=== PATIENT | female | born 1960 | race Caucasian/White ===

== ENCOUNTER → 2017-05-22 | Outpatient (CLI) | payer OTHER ==
--- NOTE | 2017-05-22 12:58 | RAD ---
Single contrast barium enema History: Incomplete colonoscopy. Comparison: None. Technique: 2 cook seafood overhead radiographs were obtained. 7 postcontrast radiographs were obtained. 54 spot fluoroscopic images were obtained. Total fluoroscopic time was 9.1 minutes. Findings: Nitric Acid Concentrator Operator film demonstrates nonobstructed bowel gas pattern. Bowel preparation is thought adequate. Secondary to history of incomplete colonoscopy as well as concerns of patient mobility, single contrast barium enema was performed. Rectal catheter was inserted and the balloon was inflated. Consequently, there is limited evaluation of the rectum. The sigmoid colon demonstrates numerous diverticula. There is also irregular, somewhat serrated appearance of the sigmoid colon, although the sigmoid colon appears partially compressible. This is thought to represent chronic changes and muscular hypertrophy secondary to the extensive colonic diverticulosis. Lesser degree of colonic diverticulosis is seen in other portions of the colon. On several images, there is evidence of muscular contraction near the splenic flexure as the location of apparent focal narrowing appears distensible and changes appearance over time. The descending colon and transverse colon appear distensible and are without evidence of focal abnormality. Within the cecum, at the expected location of the ileocecal valve, there is apparent conical shaped filling defect of the contrast which could measure up to 3 cm in maximum dimension. This is favored to represent lipomatous hypertrophy of the ileocecal valve. Impression: 1. 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 No other filling defect is identified. 2. The sigmoid colon demonstrates fairly extensive diverticulosis and evidence of muscular hypertrophy. 3. Lesser degree of colonic diverticulosis is seen in other portions of the colon.
== END | disposition home or self-care (01) ==
LOC: RAD 07:01 → EDSEX 08:30
PROVIDERS: ATTEND Internal Medicine Gastroenterology
DX: K56.600 Partial intestinal obstruction, unspecified as to cause (principal); K57.30 Diverticulosis of large intestine without perforation or abscess without bleeding
CPT/HCPCS: 74270

== ENCOUNTER → 2018-06-24 | Outpatient (CLI) | payer OTHER ==
[~2018-06-24] MED LIST: BUPIVACAINE MPF 0.25% 10 ML VIAL. ONE; DEXAMETHASONE SOD PHOS 10 MG/ML VIAL ONE
== END | disposition home or self-care (01) ==
LOC: SURG 13:49
PROVIDERS: ATTEND Anesthesiology
DX: M79.18 Myalgia, other site (principal); J44.9 Chronic obstructive pulmonary disease, unspecified; G47.30 Sleep apnea, unspecified; I10 Essential (primary) hypertension; F31.9 Bipolar disorder, unspecified; M19.90 Unspecified osteoarthritis, unspecified site; Z90.49 Acquired absence of other specified parts of digestive tract; Z90.710 Acquired absence of both cervix and uterus; Z79.899 Other long term (current) drug therapy; F17.210 Nicotine dependence, cigarettes, uncomplicated
CPT/HCPCS: 20552; J1100; J3490; 20553

== ENCOUNTER 2019-11-25 21:04 | Emergency (ER) | payer OTHER, MEDICAID ==
[~2019-11-25] VITALS: Ht 170.2 cm; Wt 90.9 kg
--- NOTE | 2019-11-25 21:09 | PHYS DOC ---
Past History Past Medical History: Constipation, Diverticulitis, Pneumonia, UTI General Adult EDM: Chief Complaint: ABDOMINAL PAIN HPI: HPI: ".. I ve been hurting tonight..." "..It really been bad since about 6.. I know I got some past hx of colon problems.. and had some urinary tract infections..but this is really hurting me on this Lt. flank, and into..my lower abdomen..." Patient is a 59 year old female who presents with above hx and complaints of abdomen pain. Acute onset of pain approximately 1800 hrs. tonight. Patient did states she did not feel quite warm right today. At noon she had a salad. But no history of bad food intake. No recent travel outside [facility]. No specific ill contacts. No history of trauma. Has had previous abdomen surgeries of hysterectomy and has had a history of previous kidney stones. . Pt.follow s with . Patient also follows with Dr. Laureano. Last colonoscopy was 1 year ago. Patient recently had a outpatient diagnosis. pneumonia. Patient's COVID test was negative on . Review of Systems: Review of Systems: Constitutional: Denies fever or chills Eyes: Denies change in visual acuity HENT: Denies nasal congestion or sore throat Respiratory: Denies cough or shortness of breath Cardiovascular: Denies chest pain or edema GI: Complains of left mid and flank abdominal pain, nausea,. Denies vomiting, bloody stools or diarrhea : Denies dysuria Musculoskeletal: Denies back pain or joint pain Integument: Denies rash Neurologic: Denies headache, focal weakness or sensory changes Endocrine: Denies polyuria or polydipsia Lymphatic: Denies swollen glands Psychiatric: Denies depression or anxiety Heart Score: HEART Score for Chest Pain: HEART Score for Chest Pain Response (Comments) Value History Slighlty/Non-Suspicious 0 ECG Normal 0 Age >45 - < 65 1 Risk Factors 1 or 2 Risk Factors 1 Troponin < Normal Limit 0 Total 2 Risk Factors: Risk Factors: DM, Current or recent (<one month) smoker, HTN, HLP, family history of CAD, obesity. Risk Scores: Score 0 - 3: 2.5% MACE over next 6 weeks - Discharge Home Score 4 - 6: 20.3% MACE over next 6 weeks - Admit for Clinical Observation Score 7 - 10: 72.7% MACE over next 6 weeks - Early Invasive Strategies Family History: Family History: Noncontributory to presentation Current Medications: Current Meds: See nursing for home medications Allergies: Allergies: No known drug allergies Physical Exam: PE: Constitutional: Moderate acute distress, non-toxic appearance. [] HENT: Normocephalic, atraumatic, bilateral external ears normal, oropharynx moist, no oral exudates, nose normal. [] Eyes: PERRLA, EOMI, conjunctiva normal, no discharge. [] Neck: Normal range of motion, no tenderness, supple, no stridor. [] Cardiovascular:Heart rate regular rhythm, no murmur [] Lungs & Thorax: Bilateral breath sounds equal apex with scattered wheezes on auscultation [crackles right base. Abdomen: Bowel sounds decreased, soft, left mid and lower abdomen tenderness, distended, no masses, no pulsatile masses. [Rebound to mid abdomen left. Skin: Warm, dry, no erythema, no rash. [] Back: No tenderness, mild left CVA tenderness on percussion] Extremities: No tenderness, no cyanosis, no clubbing, ROM intact, no edema. [] No psoas sign. Neurologic: Alert and oriented X 3, normal motor function, normal sensory function, no focal deficits noted. [] Psychologic: Affect anxious, judgement normal, mood normal. [] EKG: EKG: My interpretation EKG shows a sinus rhythm at approximately 75 bpm. No findings acute STEMI or pathology. There are some bimodal P waves in V1 [] Radiology/Procedures: Radiology/Procedures: [address] [address] IMAGING REPORT Signed PATIENT: MARSHA CALVILLO MACCOUNT: [id number] : 1960 LOCATION: ER AGE: 59 SEX: F EXAM STATUS: REG ER ORD. PHYSICIAN: FELIZ CHOUDHURY MD REASON: Severe lower abdomen pain PROCEDURE: ACUTE ABDOMEN SERIES Exam: Acute abdominal series INDICATION: Severe lower abdominal pain TECHNIQUE: Frontal view of the chest with upright and supine views of the abdomen Comparisons: None FINDINGS: The cardiomediastinal silhouette and pulmonary vessels are within normal limits. The lung and pleural spaces are clear. Air and stool noted throughout the colon to level the rectum in a nonobstructive bowel gas pattern. Surgical suture material is at the rectum. No suspicious masses or calcifications. Visualized osseous structures are unremarkable. IMPRESSION: 1. No acute cardiopulmonary process. 2. Nonobstructive bowel gas pattern. Electronically signed by: Viridiana Plaza MD (11/25/2019 10:20 PM) [id number] DICTATED AND SIGNED BY: VIRIDIANA PLAZA MD DATE: 11/25/192219 CC: FELIZ CHOUDHURY MD; BALDEMAR ORTIZ ~ [address] [place] [address] IMAGING REPORT Signed PATIENT: MARSHA CALVILLO MACCOUNT: [id number] : 1960 LOCATION: ER AGE: 59 SEX: F EXAM STATUS: REG ER ORD. PHYSICIAN: FELIZ CHOUDHURY MD REASON: Severe lower abdomen pain PROCEDURE: ACUTE ABDOMEN SERIES Exam: Acute abdominal series INDICATION: Severe lower abdominal pain TECHNIQUE: Frontal view of the chest with upright and supine views of the abdomen Comparisons: None FINDINGS: The cardiomediastinal silhouette and pulmonary vessels are within normal limits. The lung and pleural spaces are clear. Air and stool noted throughout the colon to level the rectum in a nonobstructive bowel gas pattern. Surgical suture material is at the rectum. No suspicious masses or calcifications. Visualized osseous structures are unremarkable. IMPRESSION: 1. No acute cardiopulmonary process. 2. Nonobstructive bowel gas pattern. Electronically signed by: Viridiana Plaza MD (11/25/2019 10:20 PM) [id number] DICTATED AND SIGNED BY: VIRIDIANA PLAZA MD DATE: 11/25/192219 CC: FELIZ CHOUDHURY MD; BALDEMAR ORTIZ ~ [][address] [address] IMAGING REPORT Signed PATIENT: MARSHA CALVILLO MACCOUNT: [id number] : 1960 LOCATION: ER AGE: 59 SEX: F EXAM STATUS: REG ER ORD. PHYSICIAN: FELIZ CHOUDHURY MD REASON: Lower abdomen pain PROCEDURE: CT ABDOMEN PELVIS WO CONTRAST INDICATION: Reason: Lower abdomen pain / Spl. Instructions: / History: COMPARISON: None. TECHNIQUE: Axial CT images obtained through the abdomen and pelvis without contrast. One or more of the following individualized dose reduction techniques were utilized for this examination: 1. Automated exposure control; 2. Adjustment of the mA and/or kV according to patient size; 3. Use of iterative reconstruction technique. FINDINGS: Mild interstitial thickening right lung base. Moderate calcific atherosclerosis. No intrahepatic bile duct dilation. No peripancreatic fluid collection. suspected duodenal diverticulum. Spleen unremarkable. No hydronephrosis. Urinary bladder is decompressed. Wall thickening of the sigmoid colon with adjacent edema in the fat no periappendiceal inflammatory changes. No dilated loops of bowel to suggest obstruction. Small fat-containing umbilical hernia. IMPRESSION: * thickening of the sigmoid colon with adjacent edema in the fat. Most likely cause is diverticulitis. Would correlate whether the patient has had a recent colonoscopy as well since a colonic mass could have a similar appearance but would be less common. Follow-up could be obtained to ensure that this appropriately resolves if a recent colonoscopy has not been obtained.. * Calcific atherosclerosis. * There is a mild interstitial thickening at the right lung base. Electronically signed by: Jimmy Munson MD (11/26/2019 12:12 AM) [id number] DICTATED AND SIGNED BY: JIMMY MUNSON MD DATE: 11/26/19 0012 CC: FELIZ CHOUDHURY MD; BALDEMAR ORTIZ Course & Med Decision Making: Course & Med Decision Making Pertinent Labs and Imaging studies reviewed. (See chart for details) Patient stay on a clear fluid diet only for the next 2 days. No solids or milk products. Push clear fluids. Must allow bowel rest. Patient take Tylenol and ibuprofen for pain. Follow-up primary care. Marked pain may take Vicoprofen. Patient to take Cipro 500 mg twice a day. Patient take Flagyl 500 mg 3 times a day. Patient may take Zofran 8 mg up to 4 times a day for nausea and vomiting. Impression: 1. Abdomen pain 2. Constipation 3. Diverticulitis 4. Right basilar pulmonary atelectasis/scarring/infiltrate 5. Urinary tract infection 6. Mild elevation in creatinine 1.1 7. Viral syndrome-elevated monocyte 10 [] Dragon Disclaimer: Dragon Disclaimer: This electronic medical record was generated, in whole or in part, using a voice recognition dictation system. Departure Departure: Disposition: HOME/RESIDENCE PRIOR TO ADM Condition: STABLE Referrals: BALDEMAR ORTIZ (PCP) Scripts Hydrocodone/Ibuprofen (HYDROCODONE-IBUPROFEN 7.5-200 ) 1 Each Tablet 1 TAB PO PRN Q6HRS PRN for PAIN, #30 TAB 0 Refills Prov: FELIZ CHOUDHURY MD 11/26/19 Ondansetron Hcl (ZOFRAN) 8 Mg Tablet 8 MG PO qidp for active vomiting, #30 BOTTLE Prov: FELIZ CHOUDHURY MD 11/26/19 Fluconazole (DIFLUCAN) 100 Mg Tablet 100 MG PO DAILY for post antibiotics for 3 Days, #3 TAB Prov: FELIZ CHOUDHURY MD 11/26/19 Metronidazole (FLAGYL) 500 Mg Tablet 500 MG PO TID for diverticulitis for 10 Days, #30 TAB Prov: FELIZ CHOUDHURY MD 11/26/19 Ciprofloxacin (CIPRO) 500 Mg/5 Ml Janee.mc.rec 500 MG PO BID for diverticuiitis for 5 Days, MISC Prov: FELIZ CHOUDHURY MD 11/26/19 Justification of Admission: Justification of Admission: Justification of Admission Dx: N/A Dragon Disclaimer This chart was dictated in whole or in part using Voice Recognition software in a busy, high-work load, and often noisy Emergency Department environment. It may contain unintended and wholly unrecognized errors or omissions. Dragon Disclaimer This chart was dictated in whole or in part using Voice Recognition software in a busy, high-work load, and often noisy Emergency Department environment. It may contain unintended and wholly unrecognized errors or omissions. FELIZ CHOUDHURY MD Nov 25, 2019 21:09
[2019-11-25] MEDS ORDERED: IV RINGERS SOLUTION,LACTATED 1,000 ML IV SCH (22:03)
[2019-11-25] MEDS ORDERED: MAGNESIUM HYDROXIDE 2,400 MG/30 ML ORAL.SUSP. PO ONE (22:15)
[2019-11-25] MEDS ORDERED: FAMOTIDINE 20 MG/2 ML VIAL IVP ONE (22:15)
[2019-11-25] MEDS ORDERED: ONDANSETRON PF 4 MG/2 ML VIAL. IVP ONE (22:15)
[2019-11-25] MEDS ORDERED: KETOROLAC 30 MG/ML VIAL. IVP ONE (22:15)
--- NOTE | 2019-11-25 22:23 | RAD ---
Exam: Acute abdominal series INDICATION: Severe lower abdominal pain TECHNIQUE: Frontal view of the chest with upright and supine views of the abdomen Comparisons: None FINDINGS: The cardiomediastinal silhouette and pulmonary vessels are within normal limits. The lung and pleural spaces are clear. Air and stool noted throughout the colon to level the rectum in a nonobstructive bowel gas pattern. Surgical suture material is at the rectum. No suspicious masses or calcifications. Visualized osseous structures are unremarkable. IMPRESSION: 1. No acute cardiopulmonary process. 2. Nonobstructive bowel gas pattern. Electronically signed by: Viridiana Mcgraw MD (11/25/2019 10:20 PM) [id number]
[2019-11-25 22:26] LABS: BASO # 0.1 x10^3/uL (0.0-0.2); BASO % 1 % (0-3); CREATININE 1.1 mg/dL (0.6-1.0); EOS # 0.2 x10^3/uL (0.0-0.7); EOS % 2 % (0-3); GFR 51.2; HEMATOCRIT 42.9 % (36.0-47.0); HEMOGLOBIN 14.4 g/dL (12.0-15.5); LYMPH % 29 % (24-48); MEAN CORPUSCULAR HEMOGLOBIN 31 pg (25-35); MEAN CORPUSCULAR HGB CONC 34 g/dL (31-37); MEAN CORPUSCULAR VOLUME 93 fL (79-100); MONO % 10 % (0-9); NEUT # 6.2 x10^3uL (1.8-7.7); NEUT % 59 % (31-73); PLATELET COUNT 214 x10^3/uL (140-400); POTASSIUM 4.1 mmol/L (3.5-5.1); RED BLOOD COUNT 4.63 x10^6/uL (3.50-5.40); WHITE BLOOD COUNT 10.5 x10^3/uL (4.0-11.0)
[2019-11-25 22:29] LABS: BARBITURATES NEG (NEG); BENZODIAZEPINES NEG (NEG); CANNABINOIDS NEG (NEG); COCAINE NEG (NEG); METHADONE NEG (NEG); OPIATES NEG (NEG); PHENCYCLIDINE NEG (NEG)
[2019-11-25 22:31] LABS: AMPHETAMINE/METHAMPHETAMINE NEG (NEG)
[2019-11-25 22:33] LABS: ALBUMIN 3.5 g/dL (3.4-5.0); TOTAL PROTEIN 7.4 g/dL (6.4-8.2)
[2019-11-25 22:37] LABS: DIRECT BILIRUBIN 0.2 mg/dL (0.0-0.2)
[2019-11-25 22:51] LABS: BACTERIA,URINE 0 /HPF (0-FEW); BILIRUBIN,URINE NEG (NEG); CLARITY,URINE HAZY; COLOR,URINE YELLOW; GLUCOSE,URINE NEG (NEG); NITRITE,URINE NEG (NEG); SQUAMOUS EPITHELIAL CELL,UR MANY /LPF; UROBILINOGEN,URINE 0.2 mg/dL (0.2 mg/dL)
--- NOTE | 2019-11-26 00:15 | RAD ---
INDICATION: Reason: Lower abdomen pain / Spl. Instructions: / History: COMPARISON: None. TECHNIQUE: Axial CT images obtained through the abdomen and pelvis without contrast. One or more of the following individualized dose reduction techniques were utilized for this examination: 1. Automated exposure control; 2. Adjustment of the mA and/or kV according to patient size; 3. Use of iterative reconstruction technique. FINDINGS: Mild interstitial thickening right lung base. Moderate calcific atherosclerosis. No intrahepatic bile duct dilation. No peripancreatic fluid collection. suspected duodenal diverticulum. Spleen unremarkable. No hydronephrosis. Urinary bladder is decompressed. Wall thickening of the sigmoid colon with adjacent edema in the fat no periappendiceal inflammatory changes. No dilated loops of bowel to suggest obstruction. Small fat-containing umbilical hernia. IMPRESSION: * thickening of the sigmoid colon with adjacent edema in the fat. Most likely cause is diverticulitis. Would correlate whether the patient has had a recent colonoscopy as well since a colonic mass could have a similar appearance but would be less common. Follow-up could be obtained to ensure that this appropriately resolves if a recent colonoscopy has not been obtained.. * Calcific atherosclerosis. * There is a mild interstitial thickening at the right lung base. Electronically signed by: Sung Munson MD (11/26/2019 12:12 AM) [id number]
--- NOTE | 2019-11-26 00:21 | EKG ---
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
[2019-11-26 01:00] VITALS: BP 125/91
[2019-11-26] MEDS ORDERED: CIPROFLOXACIN HCL 500 MG TABLET PO ONE (01:15)
[2019-11-26] MEDS ORDERED: CIPR500S2 PO (01:20)
[2019-11-26] MEDS ORDERED: ONDA8TAB9 PO (01:20)
[2019-11-26] MEDS ORDERED: HYDR-1179 PO (01:20)
[2019-11-26] MEDS ORDERED: FLUC100T7 PO (01:20)
[2019-11-26] MEDS ORDERED: METR500T PO (01:20)
[2019-11-26] MEDS ORDERED: IV NORMAL SALINE 50ML 50 ML ONE (01:25)
[2019-11-26] MEDS ORDERED: cefTRIAXone SODIUM 1 GM VIAL ONE (01:25)
[2019-11-26] MEDS ORDERED: MORPHINE SULFATE 10 MG/ML SYRINGE. SQ ONE (01:30)
== END 2019-11-26 02:40 | disposition home or self-care (01) ==
LOC: ER 21:04
DX: K59.00 Constipation, unspecified (principal); K57.92 Diverticulitis of intestine, part unspecified, without perforation or abscess without bleeding; N39.0 Urinary tract infection, site not specified; R79.89 Other specified abnormal findings of blood chemistry; B34.9 Viral infection, unspecified; D72.821 Monocytosis (symptomatic)
CPT/HCPCS: 36415; 74022; 74176; 80048; 80076; 80307; 81001; 82150; 83690; 84484; 85025; 85610; 85730; 87086; 93005; 96361; 96365; 96368; 96372; 96375; 99285; J0696; J1885; J2270; J2405; J3490; J7120

== ENCOUNTER 2020-05-06 19:34 | Emergency (ER) | payer OTHER, MEDICAID ==
[~2020-05-06] VITALS: Ht 167.6 cm; Wt 101.6 kg
[~2020-05-06 19:34] MED LIST changes: -BUPIVACAINE MPF 0.25% 10 ML VIAL. ONE; +CIPR500S2 PO; -DEXAMETHASONE SOD PHOS 10 MG/ML VIAL ONE; +FLUC100T7 PO; +HYDR-1179 PO; +METR500T PO; +ONDA8TAB9 PO
--- NOTE | 2020-05-06 19:37 | PHYS DOC ---
Past History Past Medical History: Constipation, Diverticulitis, Pneumonia, UTI Past Surgical History: No Surgical History Alcohol Use: None General Adult EDM: Chief Complaint: HAND PROBLEM HPI: HPI: ".. I gaby, slipped.. tripped and fell yesterday.. I caught myself with my right hand...but it is still sore... today...." Patient is a 59 year old FEMALE who presents with above hx and complaints fall and right hand injury. Right hand is swollen. Localized more to the palmar and asked fingers. There is a small abrasion on third finger. There is swelling. Does have range of motion with pain. Capillary refill is equal to left hand. Describes mechanism of injury as FOOSH type. The patient is right-hand dominant. Patient denies other injury. Pt. follows with Dr. Hill. Review of Systems: Review of Systems: Constitutional: Denies fever or chills Eyes: Denies change in visual acuity HENT: Denies nasal congestion or sore throat Respiratory: Denies cough or shortness of breath Cardiovascular: Denies chest pain or edema GI: Denies abdominal pain, nausea, vomiting, bloody stools or diarrhea : Denies dysuria Musculoskeletal: Complains of right hand injury Integument: Denies rash Neurologic: Denies headache, focal weakness or sensory changes Endocrine: Denies polyuria or polydipsia Lymphatic: Denies swollen glands Psychiatric: Denies depression or anxiety Family History: Family History: Noncontributory to presentation Current Medications: Current Meds: See nursing for home meds Allergies: Allergies: Allergies Coded Allergies Type Severity Reaction Last Updated Verified No Known Drug Allergies 11/25/19 No Physical Exam: PE: Constitutional: Moderate acute distress, non-toxic appearance. [] HENT: Normocephalic, atraumatic, bilateral external ears normal, oropharynx moist, no oral exudates, nose normal. [] Eyes: PERRLA, EOMI, conjunctiva normal, no discharge. [] Neck: Normal range of motion, no tenderness, supple, no stridor. [] Cardiovascular:Heart rate regular rhythm, no murmur [] Lungs & Thorax: Bilateral breath sounds clear to auscultation [] Abdomen: Bowel sounds normal, soft, no tenderness, no masses, no pulsatile masses. Old surgery scars Skin: Warm, dry, no erythema, no rash. [] Back: No tenderness, no CVA tenderness. [] Extremities: No tenderness, no cyanosis, no clubbing, ROM intact, no edema. Except right hand injury Neurologic: Alert and oriented X 3, normal motor function, normal sensory function, no focal deficits noted. [] Psychologic: Affect anxious, judgement normal, mood normal. [] EKG: EKG: [] Radiology/Procedures: Radiology/Procedures: [][address] [address] IMAGING REPORT Signed PATIENT: MARSHA CALVILLO MACCOUNT: [id number] : 1960 LOCATION: ER AGE: 59 SEX: F EXAM STATUS: REG ER ORD. PHYSICIAN: FELIZ CHOUDHURY MD REASON: fall , pain PROCEDURE: HAND RIGHT 3V Examination: 3 views of the right hand HISTORY: History of fall, pain COMPARISON: None available Findings/ impression: The alignment of the metacarpophalangeal joints, interphalangeal joints grossly appears unremarkable. There is questionable minimal cortical step-off identified in the head of the fifth metacarpal, uncertain etiology could be artifactual or nondisplaced fracture however obvious fracture lucency is not evident. Correlate for point tenderness.. Electronically signed by: Hakan Bal MD (05/06/2020 8:11 PM) [id number] DICTATED AND SIGNED BY: HAKAN BAL MD DATE: 05/06/202002 CC: FELIZ CHOUDHURY MD; BALDEMAR ORTIZ ~MTH0 0 Heart Score: Risk Factors: Risk Factors: DM, Current or recent (<one month) smoker, HTN, HLP, family history of CAD, obesity. Risk Scores: Score 0 - 3: 2.5% MACE over next 6 weeks - Discharge Home Score 4 - 6: 20.3% MACE over next 6 weeks - Admit for Clinical Observation Score 7 - 10: 72.7% MACE over next 6 weeks - Early Invasive Strategies Course & Med Decision Making: Course & Med Decision Making Pertinent Labs and Imaging studies reviewed. (See chart for details) Distal sensation intact post splint. Ice, elevation, Tylenol and ibuprofen for pain. Marked pain take Vicoprofen. Follow-up primary care. Return if any concerns. Impression: 1. Slip trip and fall 2. Contusion to right hand 3. Possible Step off fx 5th Metacarpal [] Dragon Disclaimer: Ruth Disclaimer: This electronic medical record was generated, in whole or in part, using a voice recognition dictation system. Departure Departure: Referrals: BALDEMAR ORTIZ (PCP) Scripts Hydrocodone/Ibuprofen (HYDROCODONE-IBUPROFEN 7.5-200 ) 1 Each Tablet 1 TAB PO PRN Q6HRS PRN for PAIN, #30 TAB 0 Refills Prov: FELIZ CHOUDHURY MD 05/06/20 Ruth Disclaimer This chart was dictated in whole or in part using Voice Recognition software in a busy, high-work load, and often noisy Emergency Department environment. It may contain unintended and wholly unrecognized errors or omissions. FELIZ CHOUDHURY MD May 06, 2020 19:37
[2020-05-06 19:40] VITALS: BP 154/66
--- NOTE | 2020-05-06 20:14 | RAD ---
Examination: 3 views of the right hand HISTORY: History of fall, pain COMPARISON: None available Findings/ impression: The alignment of the metacarpophalangeal joints, interphalangeal joints grossly appears unremarkable. There is questionable minimal cortical step-off identified in the head of the fifth metacarpal, unce rtain etiology could be artifactual or nondisplaced fracture however obvious fracture lucency is not evident. Correlate for point tenderness.. Electronically signed by: Hakan Bal MD (05/06/2020 8:11 PM) [id number]
[2020-05-06] MEDS ORDERED: HYDR-1179 PO (20:35)
== END 2020-05-06 20:40 | disposition home or self-care (01) ==
LOC: ER 19:34
DX: S60.221A Contusion of right hand, initial encounter (principal); Z87.440 Personal history of urinary (tract) infections; W01.0XXA Fall on same level from slipping, tripping and stumbling without subsequent striking against object, initial encounter; Y93.89 Activity, other specified; Y92.89 Other specified places as the place of occurrence of the external cause; Y99.8 Other external cause status
CPT/HCPCS: 29125; 73130; 99283

== ENCOUNTER → 2020-05-16 | Outpatient (CLI) | payer OTHER, MEDICAID ==
[2020-05-06 19:40] VITALS: BP 154/66
--- NOTE | 2020-05-16 18:15 | RAD ---
Right hand 3 views: Reason for examination: Right hand pain after fall with pain in the fourth and fifth digits. No acute fracture or dislocation is seen. The bone density is normal. No abnormal periosteal reaction is seen. There is a slight contour deformity at the head of the fifth metacarpal bone with no abnorm al periosteal reaction or callus formation which is probably related to remote trauma. Recommend clin ical correlation. Joint spaces are maintained. IMPRESSION: No bony acute abnormality evident in the right hand. Electronically signed by: Anna Minor MD (05/16/2020 6:13 PM) [facility]
== END ==
LOC: RAD 16:41
PROVIDERS: ATTEND Family Medicine
DX: S69.91XA Unspecified injury of right wrist, hand and finger(s), initial encounter (principal); W19.XXXA Unspecified fall, initial encounter; Y93.89 Activity, other specified; Y92.89 Other specified places as the place of occurrence of the external cause; Y99.8 Other external cause status
CPT/HCPCS: 73130

== ENCOUNTER 2020-08-11 22:05 | Emergency (ER) | payer OTHER, MEDICAID ==
[~2020-08-11] VITALS: Ht 167.6 cm; Wt 101.6 kg
[2020-08-11 23:48] LABS: BASO # 0.1 x10^3/uL (0.0-0.2); BASO % 1 % (0-3); EOS # 0.1 x10^3/uL (0.0-0.7); EOS % 1 % (0-3); HEMATOCRIT 42.4 % (36.0-47.0); HEMOGLOBIN 14.2 g/dL (12.0-15.5); LYMPH # 1.6 x10^3/uL (1.0-4.8); LYMPH % 10 % (24-48); MEAN CORPUSCULAR HEMOGLOBIN 30 pg (25-35); MEAN CORPUSCULAR HGB CONC 33 g/dL (31-37); MEAN CORPUSCULAR VOLUME 91 fL (79-100); MONO % 7 % (0-9); NEUT # 12.6 x10^3uL (1.8-7.7); NEUT % 82 % (31-73); PLATELET COUNT 241 x10^3/uL (140-400); RED BLOOD COUNT 4.66 x10^6/uL (3.50-5.40); RED CELL DISTRIBUTION WIDTH 13.4 % (11.5-14.5); WHITE BLOOD COUNT 15.4 x10^3/uL (4.0-11.0)
[2020-08-11 23:57] LABS: CALCIUM 8.3 mg/dL (8.5-10.1); CREATININE 1.3 mg/dL (0.6-1.0); GFR 42.2; POTASSIUM 3.2 mmol/L (3.5-5.1)
[2020-08-12 00:04] LABS: ALBUMIN 3.5 g/dL (3.4-5.0); DIRECT BILIRUBIN 0.1 mg/dL (0.0-0.2); TOTAL BILIRUBIN 0.6 mg/dL (0.2-1.0)
[2020-08-12] MEDS ORDERED: SUMA100T3 PO (00:16)
[2020-08-12] MEDS ORDERED: ONDA4TAB7 PO (00:16)
[2020-08-12 00:17] VITALS: BP 146/83
== END 2020-08-12 00:49 | disposition home or self-care (01) ==
LOC: ER 22:05
DX: G43.909 Migraine, unspecified, not intractable, without status migrainosus (principal); D72.829 Elevated white blood cell count, unspecified; R79.89 Other specified abnormal findings of blood chemistry; R73.9 Hyperglycemia, unspecified; F31.9 Bipolar disorder, unspecified; I10 Essential (primary) hypertension; Z87.440 Personal history of urinary (tract) infections; Z90.710 Acquired absence of both cervix and uterus
CPT/HCPCS: 36415; 70450; 74022; 80048; 80076; 82550; 83690; 84484; 85025; 85610; 85730; 93005; 96361; 96372; 96374; 96375; 99285; J1885; J2405; J3030; J3490; J7120

== ENCOUNTER 2020-09-02 17:13 | Emergency (ER) | payer OTHER, MEDICAID ==
[~2020-09-02] VITALS: Ht 167.6 cm; Wt 103.5 kg
[~2020-09-02 17:13] MED LIST changes: +ONDA4TAB7 PO; +SUMA100T3 PO
[2020-09-02] MEDS ORDERED: ASPIRIN CHEWABLE 81 MG TABLET. PO ONE (17:30)
--- NOTE | 2020-09-02 17:56 | RAD ---
EXAM: Chest, 2 views. HISTORY: Chest pain. COMPARISON: 11/25/2019 FINDINGS: 2 views of the chest are obtained. There are stable chronic appearing interstitial changes. There is a calcified granuloma within the left mid thorax. There is no consolidation, pleural effusi on or pneumothorax. The heart is normal in size. IMPRESSION: Stable chronic appearing interstitial changes. No consolidated infiltrate is seen. Electronically signed by: Radha Varghese MD (09/02/2020 5:54 PM) [facility]
[2020-09-02 18:37] LABS: CALCIUM 8.5 mg/dL (8.5-10.1); CREATININE 1.1 mg/dL (0.6-1.0); GFR 51.2; POTASSIUM 3.2 mmol/L (3.5-5.1)
[2020-09-02 18:39] LABS: BASO % 1 % (0-3); EOS # 0.2 x10^3/uL (0.0-0.7); EOS % 2 % (0-3); HEMATOCRIT 42.4 % (36.0-47.0); HEMOGLOBIN 14.2 g/dL (12.0-15.5); LYMPH # 4.2 x10^3/uL (1.0-4.8); LYMPH % 46 % (24-48); MEAN CORPUSCULAR HEMOGLOBIN 31 pg (25-35); MEAN CORPUSCULAR HGB CONC 34 g/dL (31-37); MEAN CORPUSCULAR VOLUME 92 fL (79-100); MONO # 0.7 x10^3/uL (0.0-1.1); MONO % 8 % (0-9); NEUT % 44 % (31-73); PLATELET COUNT 229 x10^3/uL (140-400); RED BLOOD COUNT 4.63 x10^6/uL (3.50-5.40); RED CELL DISTRIBUTION WIDTH 13.2 % (11.5-14.5); WHITE BLOOD COUNT 9.2 x10^3/uL (4.0-11.0)
[2020-09-02 18:52] LABS: ALBUMIN 3.4 g/dL (3.4-5.0); DIRECT BILIRUBIN 0.1 mg/dL (0.0-0.2); MAGNESIUM 1.7 mg/dL (1.8-2.4); TOTAL BILIRUBIN 0.4 mg/dL (0.2-1.0); TOTAL PROTEIN 6.8 g/dL (6.4-8.2)
[2020-09-02] MEDS ORDERED: KETOROLAC 30 MG/ML VIAL. ONE (18:56)
[2020-09-02] MEDS ORDERED: KETOROLAC 30 MG/ML VIAL. IVP ONE (19:00)
[2020-09-02] MEDS ORDERED: POTASSIUM CHLORIDE 20 MEQ TABLET.ER. PO ONE (19:00)
--- NOTE | 2020-09-02 19:42 | EKG ---
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
--- NOTE | 2020-09-02 19:42 | EKG ---
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
--- NOTE | 2020-09-02 19:59 | PHYS DOC ---
Past History Past Medical History: Bipolar, Constipation, Diverticulitis, Hypertension, Migraines, Pneumonia, UTI (GEOFFREY MOORE APRN) Past Surgical History: Hysterectomy, Other Additional Past Surgical Histo: BOWEL (GEOFFREY MOORE APRN) Alcohol Use: None (GEOFFREY MOORE APRN) Adult General Chief Complaint Chief Complaint: CHEST PAIN HPI HPI Patient is a 59-year-old female reports feeling sternal chest pain that started while she was laying in bed yesterday evening. Patient describes her chest pain as a chest tightness that increases with deep inspiration and expiration, increases when she pushes on her chest. Patient denies any diaphoretic episodes, denies nausea, vomiting, diarrhea, abdominal pain. Patient denies headaches, cough congestion fever or chills. Patient reports her chest tightness a 9/10 pain on a 1-10 pain scale. Patient denies any allergies to medications. Patient denies visual disturbances, headaches, neurological changes. Patient denies any numbness or tingling to her extremities. Patient denies any swelling to her extremities. Patient denies any other physical complaints or physical concerns. Patient denies cigarette smoking, denies EtOH consumption, denies illicit drug use. (GEOFFREY MOORE APRN) Review of Systems Review of Systems 14 body systems of review of systems have been reviewed. See HPI for pertinent positives and negative responses, otherwise all other systems are negative, nonpertinent or noncontributory. (GEOFFREY MOORE APRN) Current Medications Current Medications Patient reports current medications as hydrochlorothiazide 12.5 mg, omeprazole 40 mg, losartan 100 mg, paroxetine 20 mg, lamotrigine 100 mg, atorvastatin 20 mg, topiramate 50 mg, metoprolol 50 mg Current Medications Medications (Trade) Dose Ordered Sig/Anselmo Start Time Stop Time Status Last Admin Dose Admin Aspirin (Aspirin Chewable) 324 mg 1X ONCE 09/02/20 17:30 09/02/20 17:34 DC 09/02/20 17:45 324 MG Ketorolac Tromethamine (Toradol 30mg Vial) 30 mg STK-MED ONCE 09/02/20 18:56 09/02/20 18:57 DC Potassium Chloride (Klor-Con) 40 meq 1X ONCE 09/02/20 19:00 09/02/20 19:01 DC 09/02/20 19:29 40 MEQ (GEOFFREY MOORE APRN) Allergies Allergies Allergies Coded Allergies Type Severity Reaction Last Updated Verified No Known Drug Allergies 11/25/19 No (GEOFFREY MOORE APRN) Physical Exam Physical Exam Constitutional: Well developed, well nourished, no acute distress, non-toxic appearance. 59-year-old female in no apparent distress. HENT: Normocephalic, atraumatic, bilateral external ears normal, oropharynx moist, no oral exudates, nose normal. Oropharynx moist, pink, no deep tissue infectious process appreciated, bilateral TMs within normal limits, no lymphadenopathy of the head or neck. Bilateral nasal turbinates moist, pink, no edema, no drainage appreciated. Eyes: PERRLA, EOMI, conjunctiva normal, no discharge. Neck: Normal range of motion, no tenderness, supple, no stridor. No meningismus signs, no nuchal rigidity appreciated. Cardiovascular:Heart rate regular rhythm, no murmur, heart sounds S1-S2 to ausc ultation. Lungs & Thorax: Bilateral breath sounds clear to auscultation no adventitious lung sounds appreciated. Pain elicited to palpation midsternal anterior thorax, increased pain with movement of bilateral upper extremities, increased pain with deep inspiration and expiration. No bruising or crepitus or swelling noted to the anterior thorax. Abdomen: Bowel sounds normal, soft, no tenderness, no masses, no pulsatile masses. No bruising or abnormalities noted on the skin surfaces of the abdomen. Skin: Warm, dry, no erythema, no rash. Back: No tenderness, no CVA tenderness. Extremities: No tenderness, no cyanosis, no clubbing, ROM intact, no edema. Neurologic: Alert and oriented X 3, normal motor function, normal sensory function, no focal deficits noted. Psychologic: Affect normal, judgement normal, mood normal. (GEOFFREY MOORE APRN) Current Patient Data Vital Signs Vital Signs Date Time Temp Pulse Resp B/P (MAP) Pulse Ox O2 Delivery O2 Flow Rate FiO2 09/02/20 17:24 98.3 60 20 177/91 (119) 97 Room Air Lab Results Laboratory Tests Test 09/02/20 18:14 White Blood Count 9.2 x10^3/uL Red Blood Count 4.63 x10^6/uL Hemoglobin 14.2 g/dL Hematocrit 42.4 % Mean Corpuscular Volume 92 fL Mean Corpuscular Hemoglobin 31 pg Mean Corpuscular Hemoglobin Concent 34 g/dL Red Cell Distribution Width 13.2 % Platelet Count 229 x10^3/uL Neutrophils (%) (Auto) 44 % Lymphocytes (%) (Auto) 46 % Monocytes (%) (Auto) 8 % Eosinophils (%) (Auto) 2 % Basophils (%) (Auto) 1 % Neutrophils # (Auto) 4.0 x10^3uL Lymphocytes # (Auto) 4.2 x10^3/uL Monocytes # (Auto) 0.7 x10^3/uL Eosinophils # (Auto) 0.2 x10^3/uL Basophils # (Auto) 0.0 x10^3/uL Prothrombin Time 10.1 SEC Prothromb Time International Ratio 1.0 Activated Partial Thromboplast Time 24 SEC D-Dimer (Rianna) 0.32 mg/L Sodium Level 145 mmol/L Potassium Level 3.2 mmol/L Chloride Level 106 mmol/L Carbon Dioxide Level 28 mmol/L Anion Gap 11 Blood Urea Nitrogen 19 mg/dL Creatinine 1.1 mg/dL Estimated GFR (Cockcroft-Gault) 51.2 BUN/Creatinine Ratio 17 Glucose Level 87 mg/dL Calcium Level 8.5 mg/dL Magnesium Level 1.7 mg/dL Total Bilirubin 0.4 mg/dL Direct Bilirubin 0.1 mg/dL Aspartate Amino Transf (AST/SGOT) 21 U/L Alanine Aminotransferase (ALT/SGPT) 38 U/L Alkaline Phosphatase 91 U/L Creatine Kinase 84 U/L Creatine Kinase MB (Mass) 0.7 ng/mL Creatine Kinase MB Relative Index 0.8 % Troponin I Quantitative < 0.017 ng/mL RI-Ihx-H-Type Natriuretic Peptide 262 pg/mL Total Protein 6.8 g/dL Albumin 3.4 g/dL Albumin/Globulin Ratio 1.0 Lipase 102 U/L Current Medications Medications (Trade) Dose Ordered Sig/Anselmo Route PRN Reason Start Time Stop Time Status Last Admin Dose Admin Aspirin (Aspirin Chewable) 324 mg 1X ONCE PO 09/02/20 17:30 09/02/20 17:34 DC 09/02/20 17:45 Potassium Chloride (Klor-Con) 40 meq 1X ONCE PO 09/02/20 19:00 09/02/20 19:01 DC 09/02/20 19:29 Ketorolac Tromethamine (Toradol 30mg Vial) 30 mg 1X ONCE IVP 09/02/20 19:00 09/02/20 19:01 DC 09/02/20 18:58 Ketorolac Tromethamine (Toradol 30mg Vial) 30 mg STK-MED ONCE .ROUTE 09/02/20 18:56 09/02/20 18:57 DC Laboratory Tests Test 09/02/20 18:14 White Blood Count 9.2 x10^3/uL (4.0-11.0) Red Blood Count 4.63 x10^6/uL (3.50-5.40) Hemoglobin 14.2 g/dL (12.0-15.5) Hematocrit 42.4 % (36.0-47.0) Mean Corpuscular Volume 92 fL (79-100) Mean Corpuscular Hemoglobin 31 pg (25-35) Mean Corpuscular Hemoglobin Concent 34 g/dL (31-37) Red Cell Distribution Width 13.2 % (11.5-14.5) Platelet Count 229 x10^3/uL (140-400) Neutrophils (%) (Auto) 44 % (31-73) Lymphocytes (%) (Auto) 46 % (24-48) Monocytes (%) (Auto) 8 % (0-9) Eosinophils (%) (Auto) 2 % (0-3) Basophils (%) (Auto) 1 % (0-3) Neutrophils # (Auto) 4.0 x10^3uL (1.8-7.7) Lymphocytes # (Auto) 4.2 x10^3/uL (1.0-4.8) Monocytes # (Auto) 0.7 x10^3/uL (0.0-1.1) Eosinophils # (Auto) 0.2 x10^3/uL (0.0-0.7) Basophils # (Auto) 0.0 x10^3/uL (0.0-0.2) Prothrombin Time 10.1 SEC (9.4-11.4) Prothrombin Time INR 1.0 (0.9-1.1) Activated Partial Thromboplast Time 24 SEC (23-33) D-Dimer (Rianna) 0.32 mg/L (0.00-0.50) Sodium Level 145 mmol/L (136-145) Potassium Level 3.2 mmol/L (3.5-5.1) L Chloride Level 106 mmol/L (98-107) Carbon Dioxide Level 28 mmol/L (21-32) Anion Gap 11 (6-14) Blood Urea Nitrogen 19 mg/dL (7-20) Creatinine 1.1 mg/dL (0.6-1.0) H Estimated GFR (Cockcroft-Gault) 51.2 BUN/Creatinine Ratio 17 (6-20) Glucose Level 87 mg/dL (70-99) Calcium Level 8.5 mg/dL (8.5-10.1) Magnesium Level 1.7 mg/dL (1.8-2.4) L Total Bilirubin 0.4 mg/dL (0.2-1.0) Direct Bilirubin 0.1 mg/dL (0.0-0.2) Aspartate Amino Transferase (AST) 21 U/L (15-37) Alanine Aminotransferase (ALT) 38 U/L (14-59) Alkaline Phosphatase 91 U/L (46-116) Creatine Kinase 84 U/L (26-192) Creatine Kinase MB (Mass) 0.7 ng/mL (0.0-3.6) Creatine Kinase MB Relative Index 0.8 % (0-4) Troponin I Quantitative < 0.017 ng/mL (0-0.055) RF-Pla-S-Type Natriuretic Peptide 262 pg/mL (0-124) H Total Protein 6.8 g/dL (6.4-8.2) Albumin 3.4 g/dL (3.4-5.0) Albumin/Globulin Ratio 1.0 (1.0-1.7) Lipase 102 U/L (73-393) (GEOFFREY MOORE APRN) EKG EKG EKG performed at 1717 by house respiratory therapy staff shows a normal sinus rhythm without ectopy heart rate 60 bpm, IN interval 0.174, QTc interval 0.428, no acute STEMI, no ACS, no acute ischemia appreciated. EKG interpreted by ED attending physician Dr. Knight. EKG performed at 1811 by house respiratory therapy staff, heart rate 56 bpm, IN interval 0.176, QTc interval 0.439, no acute STEMI, no ACS, no acute ischemia appreciated, no changes when compared to previous EKG, EKG interpreted by ED attending physician Dr. Hansen. (GEOFFREY MOORE APRN) Radiology/Procedures Radiology/Procedures PATIENT: MARSHA CALVILLO MACCOUNT: [id number] : 1960 LOCATION: ER AGE: 59 SEX: F EXAM STATUS: REG ER ORD. PHYSICIAN: GEOFFREY MOORE APRN REASON: Chest pain PROCEDURE: CHEST PA & LATERAL EXAM: Chest, 2 views. HISTORY: Chest pain. COMPARISON: 11/25/2019 FINDINGS: 2 views of the chest are obtained. There are stable chronic appearing interstitial changes. There is a calcified granuloma within the left mid thorax. There is no consolidation, pleural effusion or pneumothorax. The heart is normal in size. IMPRESSION: Stable chronic appearing interstitial changes. No consolidated infiltrate is seen. Electronically signed by: Radha Jackson MD (09/02/2020 5:54 PM) [facility] DICTATED AND SIGNED BY: RADHA JACKSON MD DATE: 09/02/201752 CC: GEOFFREY MOORE APRN; EMERGENCY,DEPARTMENT; WILLIAMMirtaBALDEMAR Andry ~MTH0 0 (GEOFFREY MOORE APRN) Heart Score C/O Chest Pain: Yes HEART Score for Chest Pain: HEART Score for Chest Pain Response (Comments) Value History Slighlty/Non-Suspicious 0 ECG Normal 0 Age >45 - < 65 1 Risk Factors No Risk Factors 0 Troponin >1-<3x Normal Limit 1 Total 2 Risk Factors: Risk Factors: DM, Current or recent (<one month) smoker, HTN, HLP, family history of CAD, obesity. Risk Scores: Risk Factors: DM, Current or recent (<one month) smoker, HTN, HLP, family history of CAD, obesity. (GEOFFREY MOORE APRN) Course & Med Decision Making Course & Med Decision Making Pertinent Labs and Imaging studies reviewed. (See chart for details) 59-year-old female, vital signs reviewed, resents emergency department comp laining of sternal chest pain that started last night while laying in bed. Patient's physical presentation consistent with musculoskeletal chest wall pain however patient had no recent trauma, no recent coughs fevers chills or illnesses, no viral syndrome complaints or signs and symptoms during physical exam. Related to patient's chief complaint at age however will start cardiopu lmonary work-up in the ED. Patient was given 324 aspirin p.o. Patient's chest x-ray negative for acute process per house radiologist interpretation. The patient's labs unremarkable except for potassium of 3.2, patient was given potassium 40 mEq p.o. in the ED today. Patient was also given 30 mg IV Toradol for chest wall pain. The patient's heart score equals 2. Patient score formulated by patient's age and history of hypertension. After period of time, reevaluation of the patient found the patient pain-free, patient states she feels much better. Advised patient to follow-up with her primary care physician on Saturday. Discussed with patient will prescribe 600 mg ibuprofen that she may take 3 times a day as needed for pain. Discussed with patient to return immediately for return of severe chest pain or shortness of breath. Discussed with patient discharge diagnosis of chest wall pain of unknown etiology. Patient gave verbal understanding of discharge home instructions, follow-up with primary care on Saturday, return to ER precautions or concerns, discharge medications ibuprofen to take 3 times a day as needed for pain. Patient was thankful, states she is ready to go home. Patient was discharged home without incident. (GEOFFREY MOORE APRN) Course & Med Decision Making Did not see or evaluate patient. Agree with CHILD DAY CARE PROVIDER's work-up and disposition per note. (LOYDA HANSEN MD) Dragon Disclaimer Dragon Disclaimer This electronic medical record was generated, in whole or in part, using a voice recognition dictation system. (GEOFFREY MOORE APRN) Departure Departure: Impression: Primary Impression: Chest pain of unknown etiology Disposition: HOME / SELF CARE / HOMELESS Condition: GOOD Referrals: BALDEMAR ORTIZ (PCP) Patient Instructions: Chest Pain (Nonspecific), Chest Wall Pain Additional Instructions: You are seen today in the emergency department for chest wall pain, your lab work and x-ray imaging were unremarkable, there were no concerning findings that would warrant a hospitalization or immediate intervention by a socket welder helper or supervisor of officials. As we discussed your symptoms are consistent with chest wall pain. Please take prescribed medications as we discussed. Please follow-up with your primary care physician Dr. Baldemar Weaver this Saturday. Please return to the emergency department immediately for worsening symptoms or other concerns. EMERGENCY DEPARTMENT GENERAL DISCHARGE INSTRUCTIONS Thank you for coming to [facility] (ED) today and trusting us with you care. We trust that you had a positivie experience in our Emergency Department. If you wish to speak to the department management, you may call the director at [phone]. YOUR FOLLOW UP INSTRUCTIONS ARE FOLLOWS: 1. Do you have a private Doctor? If you do not have a private doctor, please ask for a resource list of physicians or clinics that may be able to assist you with follow up care. 2. The Emergency Physician has interpreted your x-rays. The X-Ray specialist will also review them. If there is a change in the findings, you will be notified in 48 hours when at all possible. 3. A lab test or culture has been done, your results will be reviewed and you will be notified if you need a change in treatment. ADDITIONAL INSTRUCTIONS AND INFORMATION: 1. Your care today has been supervised by a physician who is specially trained in emergency care. Many problems require more than one evaluation for a complete diagnosis and treatment. We recommend that you schedule your follow up appointment as recommended to ensure complete treatment of you illness or injury. If you are unable to obtain follow up care and continue to have a problem, or if your condition worsens, we recommend that you return to the ED. 2. We are not able to safely determine your condition over the phone nor are we able to give sound medical advice over the phone. For these safety reasons, if you call for medical advice we will ask you to come to the ED for further evaluation. 3. If you have any questions regarding these discharge instructions please call the ED at [phone]. SAFETY INFORMATION: In the interest of safety, wellness, and injury prevention; we encourage you to wear your sealbelt, if you smoke; quite smoking, and we encourage family to use a protective helmet for bicycling and other sporting events that present an increased risk for head injury. IF YOUR SYMPTOMS WORSEN OR NEW SYMPTOMS DEVELOP, OR YOU HAVE CONCERNS ABOUT YOUR CONDITION; OR IF YOUR CONDITION WORSENS WHILE YOU ARE WAITING FOR YOUR FOLLOW UP APPOINTMENT; EITHER CONTACT YOUR PRIMARY CARE DOCTOR, THE PHYSICIAN WHOSE NAME AND NUMBER YOU WERE GIVEN, OR RETURN TO THE ED IMMEDIATELY. Scripts Ibuprofen (IBUPROFEN) 600 Mg Tablet 600 MG PO TID PRN for PAIN, #20 TAB 0 Refills Prov: GEOFFREY MOORE APRN 09/02/20 GEOFFREY MOORE APRN September 02, 2020 19:59 LOYDA HANSEN MD September 03, 2020 02:17
[2020-09-02 20:06] VITALS: BP 161/89
[2020-09-02] MEDS ORDERED: IBUP600T16 PO (20:10)
== END 2020-09-02 20:20 | disposition home or self-care (01) ==
LOC: ER 17:13
DX: R07.89 Other chest pain (principal); I10 Essential (primary) hypertension; Z90.710 Acquired absence of both cervix and uterus
CPT/HCPCS: 36415; 71046; 80053; 80076; 82553; 83690; 83735; 83880; 84484; 85025; 85379; 85610; 85730; 93005; 96374; 99285; J1885

== ENCOUNTER → 2021-02-24 | Outpatient (CLI) | payer OTHER, MEDICAID ==
[~2021-02-24] MED LIST changes: +IBUP600T16 PO
--- NOTE | 2021-02-24 15:29 | RAD ---
Examination: Esophagram. History: Dysphagia Fluoroscopic time 1.2 minutes. Total fluoroscopic images 11 Findings/ impression: Esophagram shows normal esophageal motility and distention. There is no stricture, extrinsic compress ion, mass, mucosal defect, gastroesophageal reflux, or hiatal hernia. A 13 mm capsule is swallowed an d passes the GE junction without difficulty. Electronically signed by: Hakan Bal MD (02/24/2021 3:27 PM) [id number]
== END ==
LOC: RAD 07:48
PROVIDERS: ATTEND Otolaryngology
DX: R13.12 Dysphagia, oropharyngeal phase (principal)
CPT/HCPCS: 74220

== ENCOUNTER → 2021-04-13 | Outpatient (CLI) | payer OTHER, MEDICAID ==
--- NOTE | 2021-04-13 17:20 | RAD ---
EXAM: Thyroid sonogram. HISTORY: Dysphagia. TECHNIQUE: Sonographic imaging of the thyroid was performed. COMPARISON: None. FINDINGS: The right there are lobe measures 5.1 x 1.5 x 1.2 cm. The left thyroid lobe measures 5.0 x 1.7 x 1.7 cm. The thyroid isthmus measures 3 mm. The thyroid parenchyma is diffusely heterogeneous. There is a dominant solid hypoechoic nodule with peripheral blood flow within the mid right thyroid l obe measuring 1.2 x 0.9 x 0.8 cm. There are few additional tiny right thyroid nodules measuring less than 3 mm. There is a dominant left thyroid cyst measuring 1.6 x 1.3 x 1.2 cm. There are few additional smaller left thyroid cysts. There is a cyst within the right aspect of the thyroid isthmus measuring 7 x 6 x 4 mm. IMPRESSION: 1. 1.2 cm right thyroid nodule. Ti-RADS Category 4. Sonographic follow-up is typically recommended fo r category 4 nodules of this size. 2. Multiple thyroid cysts and a few tiny likely benign right thyroid nodules. These are superimposed on diffuse heterogeneous thyroid parenchyma. Electronically signed by: Radha Varghese MD (04/13/2021 5:17 PM) [id number]
== END ==
LOC: US 15:49
PROVIDERS: ATTEND Otolaryngology
DX: E04.2 Nontoxic multinodular goiter (principal); R13.12 Dysphagia, oropharyngeal phase
CPT/HCPCS: 76536

== ENCOUNTER → 2021-06-20 | Outpatient (CLI) | payer OTHER, MEDICAID ==
--- NOTE | 2021-06-21 09:24 | RAD ---
XR CHEST 2V History: Reason: COUGHING UP BLOOD TODAY / Spl. Instructions: / History: Comparison: September 02, 2020 Findings: Linear left midlung opacities, unchanged. No new consolidation. No pleural effusion. No pneumothorax. Unchanged size. Impression: 1. Stable appearance of the chest. No new consolidation. Electronically signed by: Cade Coffman DO (06/21/2021 9:22 AM) [id number]
== END ==
LOC: RAD 14:58
PROVIDERS: ATTEND Family Medicine
DX: R05.9 Cough, unspecified (principal)
CPT/HCPCS: 71046

== ENCOUNTER 2021-08-03 20:46 | Emergency (ER) | payer OTHER, MEDICAID ==
[~2021-08-03] VITALS: Ht 167.6 cm; Wt 104.0 kg
--- NOTE | 2021-08-03 21:15 | PHYS DOC ---
Past History Past Medical History: Bipolar, Constipation, Diverticulitis, Hypertension, Migraines, Pneumonia, UTI Additional Past Medical Histor: ptsd, panic disorder Past Surgical History: Hysterectomy, Other Additional Past Surgical Histo: BOWEL Alcohol Use: None General Adult EDM: Chief Complaint: OTHER COMPLAINTS HPI: HPI: 60-year-old female presents with altered sensation. Patient states that she is having intermittent feeling of [id number]-[id number] sensation on her skin. She states that it happens all over. It is most frequent on her face and head but she has episodes of feel like it is all over her body. She denies any headache, trauma, falls, fever, chills. She has had the symptoms for about 3 weeks. She does admit that she has had some changes in her psychiatric medications around the same time. She does not remember exactly what they changed. She has no other specific complaints at this time. Review of Systems: Review of Systems: Constitutional: Denies fever or chills Eyes: Denies change in visual acuity HENT: Denies nasal congestion or sore throat Respiratory: Denies cough or shortness of breath Cardiovascular: Denies chest pain or edema GI: Denies abdominal pain, nausea, vomiting, bloody stools or diarrhea : Denies dysuria Musculoskeletal: Denies back pain or joint pain Integument: Denies rash Neurologic: Psin-owv-trvdivi sensation. Denies headache, focal weakness or sensory changes. Endocrine: Denies polyuria or polydipsia Lymphatic: Denies swollen glands Psychiatric: Denies depression or anxiety Allergies: Allergies: Allergies Coded Allergies Type Severity Reaction Last Updated Verified No Known Drug Allergies 11/25/19 No Physical Exam: PE: Constitutional: Well developed, well nourished, no acute distress, non-toxic appearance. [] HENT: Normocephalic, atraumatic, bilateral external ears normal, oropharynx moist, no oral exudates, nose normal. [] Eyes: PERRLA, EOMI, conjunctiva normal, no discharge. [] Neck: Normal range of motion, no tenderness, supple, no stridor. [] Cardiovascular:Heart rate regular rhythm, no murmur [] Lungs & Thorax: Bilateral breath sounds clear to auscultation [] Abdomen: Bowel sounds normal, soft, no tenderness, no masses, no pulsatile masses. [] Skin: Warm, dry, no erythema, no rash. [] Back: No tenderness, no CVA tenderness. [] Extremities: No tenderness, no cyanosis, no clubbing, ROM intact, no edema. [] Neurologic: Alert and oriented X 3, normal motor function, normal sensory function, no focal deficits noted. [] Psychologic: Affect flat, judgement normal, mood normal. [] Current Patient Data: Vital Signs: Vital Signs Date Time Temp Pulse Resp B/P (MAP) Pulse Ox O2 Delivery O2 Flow Rate FiO2 08/03/21 20:50 98.8 63 21 127/77 (94) 93 EKG: EKG: Sinus rhythm, rate 61, normal axis, no ST elevation or depression. [] Radiology/Procedures: Radiology/Procedures: [] Impressions: RS Compliance Statement: One or more of the following individualized dose reduction techniques were utilized for this examination: 1. Automated exposure control 2. Adjustment of the mA and/or kV according to patient size 3. Use of iterative reconstruction technique CT HEAD WITHOUT CONTRAST History: Reason: AMS, confusion / Spl. Instructions: / History: Comparison: CT head without contrast August 11, 2020. Procedure: Axial images are obtained of the head from the skull base through the vertex without IV contrast. Findings: The ventricles and sulci are normal for the patient's age. No mass-effect, midline shift, hemorrhage, extra-axial fluid collection, or obvious acute infarction is identified. Basilar cisterns are patent. Bone windows demonstrate no acute calvarial abnormality. The visualized paranasal sinuses are clear. Mastoid air cells are well aerated. IMPRESSION: No acute intracranial abnormality. Electronically signed by: Natanael Fatima MD (08/03/2021 9:53 PM) [facility] DICTATED AND SIGNED BY: NATNAAEL FATIMA MD DATE: 08/03/212148 CC: JONO BARON DO; BALDEMAR ORTIZ ~ Exam: Chest one view INDICATION: Altered mental status TECHNIQUE: Frontal view of the chest Comparisons: 06/20/2021 FINDINGS: The cardiomediastinal silhouette and pulmonary vessels are within normal limits. The lung and pleural spaces are clear. IMPRESSION: No acute cardiopulmonary process. Electronically signed by: Viridiana Plaza MD (08/03/2021 9:51 PM) [facility] DICTATED AND SIGNED BY: VIRIDIANA PLAZA MD DATE: 08/03/212148 CC: JONO BARON DO; BALDEMAR ORTIZ ~ Heart Score: C/O Chest Pain: N/A Risk Factors: Risk Factors: DM, Current or recent (<one month) smoker, HTN, HLP, family history of CAD, obesity. Risk Scores: Score 0 - 3: 2.5% MACE over next 6 weeks - Discharge Home Score 4 - 6: 20.3% MACE over next 6 weeks - Admit for Clinical Observation Score 7 - 10: 72.7% MACE over next 6 weeks - Early Invasive Strategies Course & Med Decision Making: Course & Med Decision Making Pertinent Labs and Imaging studies reviewed. (See chart for details) Patient's head CT is negative for acute findings. Her chest x-ray is negative for acute findings. Her EKG is unremarkable. The patient's labs and urinalysis are unremarkable except for a low potassium. She was given oral replacement in emergency room. I am not sure what is going on but I suspect is complication of medications. I advised that she follow-up with her prescribing doctors. She is stable for discharge at this time. [] Dragon Disclaimer: Dragon Disclaimer: This electronic medical record was generated, in whole or in part, using a voice recognition dictation system. Departure Departure: Impression: Primary Impression: Pins and needles sensation Additional Impression: Hypokalemia Disposition: 01 HOME / SELF CARE / HOMELESS Condition: STABLE Referrals: BALDEMAR ORTIZ (PCP) Patient Instructions: Altered Mental Status, Hypokalemia-Brief JONO BARON DO Aug 03, 2021 21:15
--- NOTE | 2021-08-03 21:45 | EKG ---
[address] [address] Test Date: 2021-08-03 Test Time: 21:20:16 Pat Name: MARSHA CALVILLO Department: Room: Gender: F [employer]: : 1960 Requested By: JONO BARON Order Number: [id number] Reading MD: Eitan Christy Measurements Intervals Gates Rate: 61 P: 48 CT: 180 QRS: 54 QRSD: 92 T: 31 QT: 444 QTc: 453 Interpretive Statements SINUS RHYTHM T ABNORMALITY IN ANTEROSEPTAL LEADS Electronically Signed On 08-04-2021 13:15:01 CDT by Eitan Christy
--- NOTE | 2021-08-03 21:53 | RAD ---
Exam: Chest one view INDICATION: Altered mental status TECHNIQUE: Frontal view of the chest Comparisons: 06/20/2021 FINDINGS: The cardiomediastinal silhouette and pulmonary vessels are within normal limits. The lung and pleural spaces are clear. IMPRESSION: No acute cardiopulmonary process. Electronically signed by: Viridiana Mcgraw MD (08/03/2021 9:51 PM) DAVE
--- NOTE | 2021-08-03 21:56 | RAD ---
PQRS Compliance Statement: One or more of the following individualized dose reduction techniques were utilized for this examinat ion: 1. Automated exposure control 2. Adjustment of the mA and/or kV according to patient size 3. Use of iterative reconstruction technique CT HEAD WITHOUT CONTRAST History: Reason: AMS, confusion / Spl. Instructions: / History: Comparison: CT head without contrast August 11, 2020. Procedure: Axial images are obtained of the head from the skull base through the vertex without IV co ntrast. Findings: The ventricles and sulci are normal for the patient's age. No mass-effect, midline shift, hemorrhage, extra-axial fluid collection, or obvious acute infarction is identified. Basilar cisterns are patent. Bone windows demonstrate no acute calvarial abnormality. The visualized paranasal sinuses are clear. Mastoid air cells are well aerated. IMPRESSION: No acute intracranial abnormality. Electronically signed by: Natanael Fatima MD (08/03/2021 9:53 PM) [facility]
[2021-08-03 21:57] LABS: BACTERIA,URINE FEW /HPF (0-FEW); CLARITY,URINE CLEAR; COLOR,URINE YELLOW; GLUCOSE,URINE NEG (NEG); NITRITE,URINE NEG (NEG); RBC,URINE OCC /HPF (0-2); SQUAMOUS EPITHELIAL CELL,UR MOD /LPF; UROBILINOGEN,URINE 0.2 mg/dL (0.2 mg/dL)
[2021-08-03 22:11] LABS: BASO # 0.1 x10^3/uL (0.0-0.2); BASO % 1 % (0-3); EOS # 0.2 x10^3/uL (0.0-0.7); EOS % 2 % (0-3); HEMATOCRIT 43.3 % (36.0-47.0); HEMOGLOBIN 14.5 g/dL (12.0-15.5); LYMPH # 3.6 x10^3/uL (1.0-4.8); LYMPH % 43 % (24-48); MEAN CORPUSCULAR HEMOGLOBIN 30 pg (25-35); MEAN CORPUSCULAR HGB CONC 34 g/dL (31-37); MEAN CORPUSCULAR VOLUME 90 fL (79-100); MONO # 0.7 x10^3/uL (0.0-1.1); MONO % 8 % (0-9); NEUT # 3.8 x10^3uL (1.8-7.7); NEUT % 46 % (31-73); PLATELET COUNT 237 x10^3/uL (140-400); RED BLOOD COUNT 4.79 x10^6/uL (3.50-5.40); RED CELL DISTRIBUTION WIDTH 13.6 % (11.5-14.5); WHITE BLOOD COUNT 8.4 x10^3/uL (4.0-11.0)
[2021-08-03 22:21] LABS: AMPHETAMINE/METHAMPHETAMINE NEG (NEG); BARBITURATES NEG (NEG); BENZODIAZEPINES NEG (NEG); CANNABINOIDS NEG (NEG); COCAINE NEG (NEG); METHADONE NEG (NEG); OPIATES NEG (NEG); PHENCYCLIDINE NEG (NEG)
[2021-08-03 22:26] LABS: ALBUMIN 3.7 g/dL (3.4-5.0); ALBUMIN/GLOBULIN RATIO 1.2 (1.0-1.7); CALCIUM 8.6 mg/dL (8.5-10.1); CREATININE 1.3 mg/dL (0.6-1.0); GFR 42.1; TOTAL BILIRUBIN 0.7 mg/dL (0.2-1.0); TOTAL PROTEIN 6.8 g/dL (6.4-8.2)
[2021-08-03 22:28] LABS: POTASSIUM 2.8 mmol/L (3.5-5.1)
[2021-08-03 22:54] VITALS: BP 121/73
[2021-08-03] MEDS ORDERED: POTASSIUM CHLORIDE 20 MEQ TABLET.ER. PO ONE ×2 (23:00)
== END 2021-08-03 23:20 | disposition home or self-care (01) ==
LOC: ER 20:46
DX: E87.6 Hypokalemia (principal); R20.2 Paresthesia of skin; I10 Essential (primary) hypertension; G43.909 Migraine, unspecified, not intractable, without status migrainosus; F31.9 Bipolar disorder, unspecified; Z87.440 Personal history of urinary (tract) infections
CPT/HCPCS: 36415; 70450; 71045; 80053; 80307; 81001; 84484; 85025; 87086; 93005; 99285

== ENCOUNTER 2021-08-05 01:10 | Emergency (ER) | payer OTHER, MEDICAID ==
[~2021-08-05] VITALS: Ht 167.6 cm; Wt 110.0 kg
[2021-08-05 01:14] VITALS: BP 151/98
--- NOTE | 2021-08-05 01:29 | PHYS DOC ---
Past History Past Medical History: Bipolar, Constipation, Diverticulitis, Hypertension, Migraines, Pneumonia, UTI Additional Past Medical Histor: ptsd, panic disorder Past Surgical History: Hysterectomy, Other Additional Past Surgical Histo: BOWEL Alcohol Use: None General Adult EDM: Chief Complaint: CHEST PAIN HPI: HPI: 60-year-old female returns emergency room with chest pain. The patient was seen by myself last night in this emergency room. She tells me that she was doing well all day today. She was feeling better. Around 10 PM she started to have chest pain. It was moderate in intensity without radiation. She did not have significant shortness of breath or diaphoresis. This made her very worried so she decided to come the emergency room. On arrival, she states that the pain is not completely gone but it is mild. Her only other complaint is a frontal headache. Review of Systems: Review of Systems: Constitutional: Denies fever or chills Eyes: Denies change in visual acuity HENT: Denies nasal congestion or sore throat Respiratory: Denies cough or shortness of breath Cardiovascular: Chest pain GI: Denies abdominal pain, nausea, vomiting, bloody stools or diarrhea : Denies dysuria Musculoskeletal: Denies back pain or joint pain Integument: Denies rash Neurologic: Headache. Denies focal weakness or sensory changes Endocrine: Denies polyuria or polydipsia Lymphatic: Denies swollen glands Psychiatric: Denies depression or anxiety Allergies: Allergies: Allergies Coded Allergies Type Severity Reaction Last Updated Verified No Known Drug Allergies 08/05/21 No Physical Exam: PE: Constitutional: Well developed, well nourished, morbidly obese, no acute distress, non-toxic appearance. [] HENT: Normocephalic, atraumatic, bilateral external ears normal, oropharynx moist, no oral exudates, nose normal. [] Eyes: PERRLA, EOMI, conjunctiva normal, no discharge. [] Neck: Normal range of motion, no tenderness, supple, no stridor. [] Cardiovascular: Heart rate 58, regular rhythm, no murmur [] Lungs & Thorax: Bilateral breath sounds clear to auscultation [] Abdomen: Bowel sounds normal, soft, no tenderness, no masses, no pulsatile masses. [] Skin: Warm, dry, no erythema, no rash. [] Back: No tenderness, no CVA tenderness. [] Extremities: No tenderness, no cyanosis, no clubbing, ROM intact, no edema. [] Neurologic: Alert and oriented X 3, normal motor function, normal sensory function, no focal deficits noted. [] Psychologic: Affect normal, judgement normal, mood anxious. [] Current Patient Data: Vital Signs: Vital Signs Date Time Temp Pulse Resp B/P (MAP) Pulse Ox O2 Delivery O2 Flow Rate FiO2 08/05/21 01:14 98.2 70 24 151/98 (115) 96 Room Air EKG: EKG: Sinus rhythm, rate 58, normal axis, no ST elevation or depression. [] Radiology/Procedures: Radiology/Procedures: [] Impressions: Study: XR CHEST 1V Indication: Chest pain. Comparison: 08/03/2021 Findings: The cardiomediastinal silhouette and deborah are within normal limits. No localized airspace opacity, pleural effusion or pneumothorax. Left lower lung granuloma. Impression: No acute radiographic abnormality of the chest. No relevant change from the 08/03/2021 comparison. Electronically signed by: JORDYN ALFREDO MD (08/05/2021 2:11 AM) [facility] DICTATED AND SIGNED BY: JORDYN ALFREDO MD DATE: 08/05/21209 CC: JONO BARON DO; BALDEMAR ORTIZ ~ Heart Score: C/O Chest Pain: Yes HEART Score for Chest Pain: HEART Score for Chest Pain Response (Comments) Value History Slighlty/Non-Suspicious 0 ECG Normal 0 Age >45 - < 65 1 Risk Factors 1 or 2 Risk Factors 1 Total 2 Risk Factors: Risk Factors: DM, Current or recent (<one month) smoker, HTN, HLP, family history of CAD, obesity. Risk Scores: Score 0 - 3: 2.5% MACE over next 6 weeks - Discharge Home Score 4 - 6: 20.3% MACE over next 6 weeks - Admit for Clinical Observation Score 7 - 10: 72.7% MACE over next 6 weeks - Early Invasive Strategies Course & Med Decision Making: Course & Med Decision Making Pertinent Labs and Imaging studies reviewed. (See chart for details) The patient's EKG is unremarkable. Her labs are essentially unremarkable and similar to yesterday. Her potassium is improved to 3.3. Her troponin is negative. Chest x-ray is negative for acute findings. I am not sure why the patient is so anxious but I suspect it is still related to the changes in her medications. I have again stressed that she needs to meet with her primary physician and discuss her medications. She is stable for discharge at this time. Ruth Disclaimer: Ruth Disclaimer: This electronic medical record was generated, in whole or in part, using a voice recognition dictation system. Departure Departure: Impression: Primary Impression: Chest pain of unknown etiology Disposition: HOME / SELF CARE / HOMELESS Condition: STABLE Referrals: BALDEMAR ORTIZ (PCP) Patient Instructions: Chest Pain (Nonspecific), [id number] JONO BARON DO Aug 05, 2021 01:29
[2021-08-05 01:52] LABS: BASO # 0.1 x10^3/uL (0.0-0.2); BASO % 1 % (0-3); CALCIUM 8.8 mg/dL (8.5-10.1); CREATININE 1.2 mg/dL (0.6-1.0); EOS # 0.2 x10^3/uL (0.0-0.7); EOS % 2 % (0-3); GFR 46.1; HEMATOCRIT 42.1 % (36.0-47.0); HEMOGLOBIN 14.3 g/dL (12.0-15.5); LYMPH # 3.8 x10^3/uL (1.0-4.8); LYMPH % 49 % (24-48); MEAN CORPUSCULAR HEMOGLOBIN 31 pg (25-35); MEAN CORPUSCULAR HGB CONC 34 g/dL (31-37); MEAN CORPUSCULAR VOLUME 91 fL (79-100); MONO # 0.6 x10^3/uL (0.0-1.1); MONO % 8 % (0-9); NEUT # 3.1 x10^3uL (1.8-7.7); NEUT % 40 % (31-73); PLATELET COUNT 216 x10^3/uL (140-400); POTASSIUM 3.3 mmol/L (3.5-5.1); RED BLOOD COUNT 4.65 x10^6/uL (3.50-5.40); RED CELL DISTRIBUTION WIDTH 13.8 % (11.5-14.5); WHITE BLOOD COUNT 7.8 x10^3/uL (4.0-11.0)
[2021-08-05 01:58] LABS: ALBUMIN 3.5 g/dL (3.4-5.0); ALBUMIN/GLOBULIN RATIO 1.2 (1.0-1.7); TOTAL BILIRUBIN 0.5 mg/dL (0.2-1.0); TOTAL PROTEIN 6.5 g/dL (6.4-8.2)
[2021-08-05] MEDS ORDERED: KETOROLAC 30 MG/ML VIAL. IVP ONE (02:00)
--- NOTE | 2021-08-05 02:13 | RAD ---
Study: XR CHEST 1V Indication: Chest pain. Comparison: 08/03/2021 Findings: The cardiomediastinal silhouette and deborah are within normal limits. No localized airspace opacity, pl eural effusion or pneumothorax. Left lower lung granuloma. Impression: No acute radiographic abnormality of the chest. No relevant change from the 08/03/2021 comparison. Electronically signed by: JORDYN ALFREDO MD (08/05/2021 2:11 AM) [facility] [place]
[2021-08-05] MEDS ORDERED: diphenhydrAMINE 50 MG/ML VIAL IVP ONE (02:30)
[2021-08-05] MEDS ORDERED: METOCLOPRAMIDE HCL 10 MG/2 ML VIAL. IVP ONE (02:30)
== END 2021-08-05 02:35 | disposition home or self-care (01) ==
LOC: ER 01:10
DX: R07.89 Other chest pain (principal); F31.9 Bipolar disorder, unspecified; I10 Essential (primary) hypertension; G43.909 Migraine, unspecified, not intractable, without status migrainosus; Z87.440 Personal history of urinary (tract) infections
CPT/HCPCS: 36415; 71045; 80053; 84484; 85025; 96374; 96375; 99284; J1200; J1885; J2765